=== PATIENT | female | born 1995 | race Caucasian/White ===

== ENCOUNTER → 2016-04-27 | Day surgery (SDC) | payer OTHER ==
[~2016-04-27] VITALS: Ht 170.2 cm; Wt 61.2 kg
--- NOTE | 2016-04-27 17:40 | RADIOLOGY REPORT ---
EXAMINATION: XR LUMBAR SPINE CLINICAL INFORMATION: 21 year old female for lumbar laminectomy at L4-L5 in the OR. COMPARISON: None TECHNIQUE: Single lateral view of the lumbosacral spine was obtained portably in the operating room. FINDINGS: The lowermost lumbar vertebra seen separate from the sacrum is counted as L5. There is a radiopaque marker identified posteriorly overlying the L5 spinous process and a 2nd radiopaque marker seen above the previous marker projecting at the level of L4-L5 disc. IMPRESSION: Portable lateral radiograph of the lumbosacral spine showing findings as described above.
--- NOTE | 2016-04-28 15:15 | Operative Report ---
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 Estimated Blood Loss: less than 50ml Surgeon/Ship'S Cook: LUIS VALDEZ,NOELLE Mane - Primary Admitting Orthopaedic Spine Surgeon Surgical Providers: Noelle Tai M.D. - Orthopaedic Spine Surgeon (Primary Admitting Surgeon) Ja Bailey P.A.-C - Crossing Supervisor Anesthesia: general endotracheal tube Monitors: Standard general anesthesia and other perioperative monitoring was performed per anesthesia. Refer to anesthesia records for details. IV Fluids: Standard anesthesia fluid management was performed without requirement for additional or emergent fluid resuscitation. Refer to anesthesia records for details. Implants: Implants Placed: None Graft Placed: None Urine Output: Refer to anesthesia records for details. Drains: None Specimens: Lumbar disc material was sent to pathology for analysis per hospital protocol. Single large removed disk fragment sent intact for measurement and evaluation. Complications: None Condition: Initial Preoperative Condition: The patients condition was stable to the operating room without vital sign, hemodynamic, cardiopulmonary or other organ system abnormality and without new neurovascular or musculoskeletal functional deficit compared to stable baseline of preoperative distal left lower extremity sensory and motor deficit noted on orthopaedic spine surgical office as well as admission history and physical evaluations. The patient was cleared preoperatively as optimized for surgery by orthopaedic surgical office evaluation prior to admission. There were no significant adverse changes evident in the patients condition between the clearance admission history & physical evaluations and the immediate preoperative assessment. Intraoperative Condition: The patient was stable throughout the procedure without vital sign, cardiopulmonary or other monitoring changes, lability, instability or abnormality. Final Postoperative Condition: The patient was extubated and stable to the recovery room with no new deficit or adverse change compared to stable baseline preoperative neurological and musculoskeletal assessment (with moderate sensory and motor deficits noted above ) based on limited evaluation during initial recovery from anesthesia. The patient demonstrated grossly normal spontaneous motion initially as well as later normal motion and function to command in both upper and distal lower extremities once fully awake upon early recovery from anesthesia. On postoperative neurological assessment the patient reported subjective partial improvement compared to her preoperative sensory and motor deficits and this improvement was confirmed on objective sensory evaluation and manual motor testing with incomplete but greater than 50% return to normal and symmetrical function even at this early timepoint. The patient was very encouraged by this immediate and noticeable response which will be closely monitored throughout her rehabilitation process. There was no swelling, erythema, tenderness, pain with either active or passive motion or any other symptom or finding to suggest a concerning process involving the superficial or deep cutaneous, subcutaneous, muscular, vascular or other tissues related to the immobilization or localized pressure of prolonged prone positioning for surgery. Operative Indication: La Degroot is a 21 year old healthy white female who presents today for left L4-L5 hemilaminotomy and decompressive discectomy to address severe left lower extremity radiating pain, distal numbness and distal EHL/AT weakness with partial footdrop and some claudicating ambulatory worsening of symptoms, mild gait abnormality and additional functional deficits secondary to large left L4- L5 disk herniation causing significant traversing and exiting neural element compression. This condition became symptomatic several months ago related to a rapid but non-vigorous and atraumatic change of body position without specific or significant inciting event, injury or change in activity. She denies any prior history of severe and incapacitating back pain and has never had any prior radiating symptoms. She does report prior history of activity related back pain consistent with additional findings of lower lumbar degenerative change on radiologic studies possibly related to cumulative sports and recreational injuries but with no history of severe or even significant trauma. Her symptoms and condition steadily progressed initially and have now plateaued at an unacceptable level associated with significant activity and functional limitation consistent with the radiologic findings of severe left canal and lateral recess soft tissue stenosis causing significant neural compression. She has not improved despite excellent compliance with an extensive and comprehensive course of conservative, noninvasive management and thus she has very reasonably chosen to proceed with surgical discectomy for decompression. The patient's preoperative lumbar spine radiologic workup (including static radiographs and MRI scan) showed the above noted severe left canal and lateral recess soft tissue stenosis secondary to a very large left L4-L5 extruded disk herniation fragment consistent with the patient's current presenting clinical condition including symptoms (radiating pain and sensory loss), physical examination findings (distal left lower extremity motor weakness) and functional deficits. The radiologic findings are also consistent with the persistence of her condition and her failure to improve with conservative care. Standard preoperative laboratory studies for this young female patient were unremarkable including negative HCG testing. The patient has sufficiently severe and progressively worsening clinical condition (symptoms and exam findings listed above) related to this condition, has failed a comprehensive conservative management program despite excellent compliance, has close correlation between clinical presentation and preoperative studies, is medically optimized for surgical intervention, understands and accepts the limitations, uncertainties and risk of surgery, appears to have appropriate goals for surgical outcome, and is more likely to achieve those goals with the planned surgical procedure than with other options for treatment thus making her a reasonable candidate for surgical intervention. The patient reports no significant past medical or surgical history pertinent to her current surgical treatment. She denies any complications, adverse events or outcomes associated with procedures, tests or interventions. She reports no current or recent medication or supplement use. She denies any history of anaphylactic, anaphylactoid, allergic or non-allergic reactions or sensitivities to medications, foods or skin contact environmental allergens. She is a non- tobacco-smoker and denies significant alcohol intake or other social risk factors. She reports other daily smoking history which is described in greater detail in her office records and is not likely to be significant to her perioperative or other orthopaedic care. The above clinical information was reviewed throughout the hospital admission and preoperative confirmation process but did not alter surgical recommendations, treatment plans or perioperative management in this case. Treatment options were discussed in detail directly with the patient. After careful and appropriate consideration she elected to proceed with the planned operative procedure of left L4-L5 hemilaminotomy and decompressive discectomy. She also consented to any additional indicated procedure based on intraoperative findings. Arrangements for hospital admission, surgery and perioperative care were made through Dr. Tai's office. In addition to the general risks of all surgical procedures (bleeding, infection, anesthesia and other general risks), specific risks of the planned procedure were reviewed with the patient including but not limited to tissue injury or exacerbation of prior injury (spinal cord, nerve root, peripheral nerve, meningeal, blood vessel, bone, disk, joint, muscle, tendon, ligament or other tissue injury), meningeal tear, spinal fluid leak, fracture of spinal elements, worsening of spinal alignment, abnormal (hypertrophic, heterotopic or ectopic) bone or scar formation, new or persistent-exacerbated symptoms (pain, dysesthesias, paresthesias, headaches), development of new or worsening of preexisting medical conditions or complications (arthritis, blood clots, cardiac events, stroke, acute organ failure of any organ, other medical conditions potentially worsened by trauma, surgery, anesthesia or immobility), inability to complete the procedure as planned, and need for reoperation at the current or a future related site (including possible surgeries for degenerative processes documented at the current and adjacent lumbar levels). Potential for partial or complete, global or regional loss of motor, sensory, coordination, ambulatory, balance, bladder, bowel or sexual function was reviewed. Remaining potential complications were reviewed in inclusive risk categories ranging through all severity levels from temporary changes to catastrophic outcomes such as complete paralysis, organ failure, disfigurement or . The patient understood and accepted that her risk was slightly above average for this procedure compared to her age and clinical cohort due to her duration, severity and steady progression of pre-operative symptoms, significant and progressive pre-operative subjective and objective left lower extremity deficits , severity of neural element compression on MRI, degree and multiple levels of degenerative disk disease at her young age. She also understood that her risk of personally significant functional limitation following surgery was higher than most patients because of her young age, vigorous desired baseline activity level and degenerative disease. On the other hand, her small frame and history of excellent exercise compliance likely mitigates some of this increased risk. She also understood and accepted that the purpose of surgery is to minimize the chance for further progression of symptoms and neurological deficit and that her current preoperative deficits may be permanent. Signed operative consent was obtained directly from the patient with good understanding of all reasonable alternatives, indications, goals, expectations, limitations, risks and benefits of the planned procedure. She consented to all phases of the procedure being performed by Dr. Tai with the assistance of all designated hospital and outpatient practice team members. She was cleared preoperatively as optimized for surgery by primary surgeon office evaluation prior to admission. In the preoperative evaluation area, the patient confirmed her oral intake status as NPO since midnight prior to surgery. Operative/Procedure Note Note: Preoperative Holding Area Assessment/Preparation: The patient was evaluated in the preoperative holding area prior to surgery and no clinical changes or contraindications to surgical intervention were documented compared to the preoperative office and clearance evaluations. Her left foot and ankle sensory and motor deficits were unchanged from clearance examinations. As in the office, the patient was otherwise grossly neurovascularly intact in both lower extremities to standard testing. There were no multiple, bilateral or sacral root distribution sensory, motor, reflex, coordination or ambulatory changes to suggest acute increase in neural element compression that might be associated with increased neurological intraoperative risk based on preoperative assessment. The surgical plan and site were confirmed with the patient and preoperative paperwork was finalized. The region of the intended surgical site was cleansed, prepped and marked per protocol. The primary surgeon, anesthesia care team members, and operating room staff confirmed the patient identity, surgical procedure, and operative site as well as other clinical details with the patient in an initial documented preoperative confirmation (awake time out) prior to the administration of sedation or anesthesia. Surgical Procedure: The procedure was performed by Dr. Tai who was present and served as the primary surgeon for all critical intraoperative and perioperative decisions and interventions. The assistance of a specialty trained surgical physician assistant director was critical for safe completion of all phases of the procedure, particularly for maintenance of clear visualization in the operative field and for protected neural element retraction. Set-Up/Positioning/Exposure - The patient was brought to the operating room in stable condition and underwent uncomplicated induction of general anesthesia, intubation, and placement of all appropriate monitors, lines and catheters without difficulty. Administration of 2 grams of IV Ancef based on patient body mass was given for surgical prophylaxis and was completed at least 30 and less than 60 minutes prior to making an incision. The patient was positioned prone on the standard operating table outfitted with a rigidly attached Cloward frame in typical fashion for a lower lumbar discectomy taking care to protect and stabilize the spine during transfer, avoid positions of nerve stretch, pad all pressure points, and support the head without any pressure on the eyes using a foam head rest. The arms were abducted less than 90 degrees at the shoulders, flexed less than 90 degrees at the elbows and supported on well padded arm-boards with additional foam padding from the axillary to the hands with all pressure points either fully padded or supported without any contact at all between pads. The primary surgeon, anesthesia care team, and operating room staff again documented the patient identity, surgical procedure, and operative site as well as other clinical details in a final documented confirmation (final time out) prior to beginning the procedure. Loupe magnification was used throughout the appropriate portions of the procedure. After sterile prep and drape, an incision was mapped, infiltrated with 0.5% Marcaine local anesthetic with epinephrine, and made extending longitudinally from the superior tip of the L4 spinous process to the superior tip of the L5 spinous process overlying the intended L4-L5 operative level. Hemostasis was achieved using Bovie and Bipolar electrocautery beginning with the incision and continuing throughout the procedure with settings appropriate to each progressive level. The lumbosacral fascia was divided over the left side of the L4 and superior L5 spinous process tips as well as the bridging interspinous ligament segment using the Bovie electrocautery which was also used to maintain hemostasis throughout the exposure. Care was taken to preserve the interspinous ligament so as to maintain optimal postoperative stability and motion segment ligamentous tension. The dissection was then carried down the left side of the middle and inferior L4 spinous process, the interspinous space and the superior margin of the L5 spinous process and then extended laterally to expose the corresponding laminae and interlaminar space at that level out to the edge of the left L4-L5 facet capsule which was preserved. The Roland retractor was placed with lateral blunt serrated ("toothed") blade and medial interspinous hook of appropriate length to provide optimal retraction and visualization. The intended hemilaminotomy and discectomy level was marked with a curved curette placed under the inferior leading edge of the superior lamina and confirmed to be at the intended interspace on cross-table lateral radiograph. Intraoperative findings of multilevel lower lumbar moderate degenerative disk disease correlated well with the preoperative radiographic studies and no obvious interval change or additional abnormality was noted. The alignment of the spine on this intraoperative localization radiograph was noted to be normal and unchanged from preoperative office studies. Hemilaminotomy/Discectomy/Decompression - The lateral margin of the pars interarticularis of L4 was identified so as to insure that the hemilaminotomy was tapered sufficiently to avoid thinning or destabilization of this region. Left L4 inferior hemilaminotomy was performed by thinning the inferior edge of the L4 lamina in a tapered fashion using the [place] Johnathan drill followed by piecemeal resection of the deep laminar cortex using Kerrison rongeurs after dissecting under the leading edge with a curved curette to free any underlying adhesions. The inferior hemilaminotomy of L4 was sufficient to adequately and safely access and decompress the canal in this case and so no additional interlaminar hemilaminotomy (with resection of the superior margin of L5) was required. The L4 hemilaminotomy was carried out laterally to the level of the medial margin of the facet superficially and to the level of the medial wall of the L5 pedicle within the canal taking care not to violate the posterior facet capsule or excessively thin the pars interarticularis. This dissection provided sufficient canal access in this patient such that no partial medial facetectomy was required for additional exposure. The cephalad edge of the ligamentum flavum was dissected from its laminar attachment and elevated with a curved curette to insure that there were no epidural adhesions dorsally. The ligamentum was reflected medially but was sufficiently thickened that it could not be easily spared while still providing sufficient access to the canal and room for nerve mobilization to allow safe removal of the very large disk fragment. Therefore, the elevated ligamentum was fully resected within the laminotomy opening using Kerrison rongeurs. This provided excellent exposure of the canal with full visualization and safe access to the elevated and compressed lateral thecal sac and traversing nerve root at this level. Attention was then turned to the perineural dissection and safe mobilization of the neural elements for exposure of the compressive disk herniation. On initial visual evaluation, the traversing nerve root and lateral thecal sac were seen to be obviously dorsally displaced and somewhat flattened ventrally by passage over the large underlying herniated disc fragment which appeared to have both significantly extruded into the canal (associated with direct traversing neural structure meningeal contact) and also partially migrated in a pocket beneath the posterior longitudinal ligament behind the L4 vertebral body (associated with indirect exiting neural element compression) consistent with the preoperative clinical presentation and MRI findings. The direct contact of the disk material with the meninges was associated with focal areas of ventral nerve root erythema , inflammation and irritation suggestive of chemical as well as compressive radiculopathy and consistent with the severity, chronicity and poor response to conservative measures of the patient's symptoms confirming the indications for surgery. All of these findings also suggested that improvement would have been unlikely with further conservative management and without surgical intervention. The large size of the extruded disk herniation fragment with extension outside of the normal confines of the disk space and even some migration beyond the motion segment behind the vertebral body along with its chronicity and inflammatory response was associated with moderate epidural fibrosis and therefore necessitated more extensive dissection (and consequently more careful and extensive protection of the neural elements) as well as more operative time than usual for a typical discectomy procedure. Although neurolysis was felt to be significantly increased compared to the average, the fibrotic adhesions did not appear to cause separate tethering or compression of the neural elements, and therefore this additional dissection was still deemed to be consistent with a standard discectomy procedure. No separately coded neurolysis procedural service was required in this case. Gentle palpation and careful dissection with a [place] 4 and limited epidural neurolysis was sufficient to safely mobilize the neural elements sufficient to optimally access the more ventral large extruded disk fragment in the lateral recess and safely perform decompressive discectomy. A [place] 4 was used to dissect down the superomedial wall of the L5 pedicle to the floor of the canal thus defining a safe plane for dissection and neurolysis where necessary. This dissection was then carried superiorly where the disk space was identified and gently dissected free of adhesions over the top of the extruded disk herniation covered with an adherent but not tethering fibrotic layer. An inferior safe plane was identified lateral to the traversing nerve root just above the L5 pedicle, caudal to the extent of extruded disc fragment and epidural fibrosis. Dissection was then carefully carried superiorly within that safe dissection plane to fully free the traversing root from the disk herniation and fibrous tissue so as to adequately mobilize it for retraction. Once this had been safely achieved the dissection was carried medially over the large extruded fragment until the traversing root could be retracted sufficiently to expose the entire surface of the herniation in preparation for discectomy. After initial dissection and neural element mobilization the dorsal extent of the disc herniation fragment was visualized and gently manipulated from its extruded and partially sequestered position using a pituitary rongeur. Ultimately the entire large extruded fragment was removed in a single piece including a small tail of fragment still contained within the disk space and behind the annulus through a moderate-sized annular tear. This fragment resection resulted in visible decompression of the previously elevated traversing root and thecal sac. This debulking allowed further careful perineural dissection all the way to the ventral midline with significantly less tension on the traversing neural elements thus minimizing risk of injury. The axilla of the traversing root was checked and no fibrotic tethering was found that might cause acute angle "kinking" or other focal compression at the exit of the nerve from the thecal sac. Thus there was no significant dissection required in the axillary zone. With the perineural dissection, neurolysis and resection of extruded fragment complete, the neural elements could be safely retracted so as to allow extension of the traumatic annulotomy followed by final discectomy of any remaining disk herniation fragments and all loose intradiscal fragments using standard technique. Epidural hemostasis was achieved using Bipolar electrocautery and gentle packing of the epidural space with small volume of Thrombin soaked Gelfoam held with Patties which also provided some medial retraction of the neural elements for optimal exposure of the disk space. The traversing nerve root and thecal sac were gently retracted with a Love nerve root retractor to expose the disk space while protecting the neural elements. The subligamentous pocket formed behind the L4 vertebral body by the dissecting portion of the large disk fragment was explored using an Antonella curette to insure that there were no additional sequestered fragments and none were found. A minimal linear extension of the traumatic annulotomy was performed using a # 11 scalpel blade to optimize disk space access. Interspace discectomy was then performed to remove a few loose intervertebral disc fragments using straight and angled pituitary rongeurs taking care to carry the discectomy laterally within the disk space ventral to the foramen so as to completely decompress both the intra- and extra-foraminal spaces, in addition to the lateral recess and central canal. The disk material was found to be structurally normal in this subforaminal zone. All loose or non-physiologic disk material was removed from all disk space zones while preserving as much palpable structurally intact disk as possible. Only a few small fragments were removed from the central and lateral regions and no large or compressive loose fragments were found either centrally or laterally. By palpation the large resected herniation fragment left a moderate-sized central defect in the disk space, however the remainder of the disk was of fairly normal consistency by palpation and there were no nucleus , annulus or cartilaginous endplate defects palpated adjacent to the central defect or in the peripheral zones. Once the discectomy was completed, an Antonella curette and nerve hook were used to gently sweep under the retracted traversing nerve root and thecal sac to ensure that there was clear passage within the ventral epidural space with no residual extravasated or sequestered disk fragments found. A [employer] dental instrument was then gently passed out the upper and lower foramina without evidence of any foraminal narrowing, stenosis or nerve root compression of either the exiting or the traversing roots. Therefore, no osseous foraminotomy, foraminal soft tissue decompression or lateral root neurolysis dissection was required. Moderate irritability, hyperactive neural firing and muscular contraction was noted during neurolysis, neural element mobilization and decompressive discectomy of the large extruded disk fragment. This was consistent with the degree of compression and irritation seen both on preoperative MRI and intraoperative inspection. All hyperactive responses resolved immediately following decompression and no further abnormal activity was noted during the remainder of the procedure. Hemostasis of osseous and epidural bleeding was achieved using Thrombin soaked Gelfoam and paddies gently applied and removed by irrigation with all bleeding controlled. Bleeding from the laminectomy edge was controlled with small amount of bone wax applied using the back of a [place] with any residua removed. Closure/Recovery - The surgical site was thoroughly irrigated and hemostasis was carefully achieved prior to closure. A piece of Gelfoam was cut to match the size of the laminotomy defect and placed over the dorsal surface of the lateral thecal sac and traversing nerve root to minimize epidural fibrotic adhesions to the decompressed neural elements. The surgical site was found to be dry at the end of the procedure and consequently no drain was needed. Initial counts were correct prior to closure. The lumbar fascial layer was reapproximated to the spinous process and trans-spinous portions of the preserved midline interspinous ligament in a [id number] closure using #0 Vicryl interrupted, [id number] suture technique. The deep suprafascial closure was performed with #2-0 Vicryl interrupted, simple suture technique. The superficial subcutaneous layer was closed with #3-0 undyed Vicryl inverted, interrupted, simple sutures. The skin was closed using #4-0 undyed running subcuticular Monocryl suture followed by Steri-Strips applied with Mastisol. A standard, sterile small island dressing was placed with good coverage. All counts were correct prior to removing the drapes. The patient was turned into the supine position on the hospital bed using careful log-roll technique, avoiding torsional stress and stabilizing the lumbar region during transfer. She was then extubated in the operating room without difficulty. Recovery Room Assessment: The patient was transported to the recovery room in stable condition where gross neurological examination showed normal function with no deficits or worsening compared to her pre-operative assessments on initial recovery from anesthesia. In fact, the patient reported subjective improvement in both her left distal lower extremity sensory and motor function and this was confirmed by objective testing to be noticeably partially improved (by approximately 50%) compared to preoperative assessment. The patient will follow the usual postoperative protocol for lower lumbar decompressive discectomy with some adjustments and accommodations made to the standard protocol because of the degree of preoperative neurological deficit, size of the patient's herniation fragment, multilevel degenerative changes at a young age and desire to return to a high level of function including vigorous recreational activities. Her postoperative care plan will include early mobilization, oral medication pain control and same day home discharge planning with instructions to mobilize frequently but to avoid lumbar motion or prolonged unsupported upright sitting. Primarily because of her concomitant moderate degenerative disk disease she will use a compression brace during the initial phase of healing for both stability and some distraction so as to optimize fibrous intervertebral disk space stabilization and healing. Lower extremity (particularly gentle hip and knee) motion is encouraged to promote longitudinal nerve motion and minimize fibrous neural tethering during the fibrous consolidation and motion segment stabilization healing phase. Outpatient rehabilitation program will be arranged either through the office or at school to begin slowly but progressively at approximately 4 weeks after surgery assuming standard and uncomplicated postoperative course and following clearance at initial postoperative follow-up assessment. Findings: 1) Large, extruded and partially migrated, very compressive disk herniation fragment was identified significantly elevating, compressing and irritating the overlying traversing and exiting neural elements. The extruded portion was associated with direct contact with the traversing neural elements including the lateral thecal sac and L5 nerve root. 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 The migrated and partially sequestered portion of disk herniation within a subligamentous pocket behind the L4 vertebral body was noted to cause indirect encroachment through the posterior longitudinal ligament within the lateral recess causing L4 nerve root exit zone bidirectional compression against the dorsal canal wall. All of these findings are consistent with the preoperative clinical presentation and radiologic findings. 2) Moderate neurolysis, increased compared to average but still consistent with standard range of discectomy procedures, was required to safely retract and protect the neural elements for discectomy and decompression. The main compressive disk herniation fragment was removed with return of all neural elements to their normal undeviated position. The disk space was then explored to remove the few remaining small loose and nonviable fragments. 3) No partial facetectomy or foraminotomy was required for additional decompression in this case. Full central canal, lateral recess and foraminal decompression was documented by intraoperative visual assessment and palpation at the end of the procedure. 4) Partial return of left distal lower extremity sensory and motor function was subjectively noted by the patient and objectively confirmed by physical examination in the recovery room on early postoperative evaluation. Discharge Disposition: PACU Additional Comments: Standard postoperative protocol for lumbar hemilaminotomy, neurolysis and discectomy will include: Continue perioperative antibiotic coverage for a total of 16 hours (1 preoperative dose as described above and 1 postoperative, pre-discharge dose of Ancef 2 grams IV 8 hours after the initial dose) The patient will use her lumbosacral circumferential compression brace (which will be dispensed from the office) most of the time when she is out of bed but may remove it to take breaks and for hygiene. Even when the brace is in place, but particularly when the brace is off, the patient is cautioned to minimize lumbar motion and prolonged unsupported upright sitting. This level of brace use and motion limitation will continue until her first postoperative visit at which time future need for bracing will be assessed and she should be able to wean its use first for normal functions and then for more vigorous activities as she strengthens with a standardized outpatient physical rehabilitation therapy program. It is not necessary for her to use the brace constantly nor when she is sleeping although she may use it at night for comfort if she so chooses. The patient will be instructed on and follow standard protocols regarding lumbar surgical site care, showering and daily dressing changes following shower starting on postoperative day #2. The patient will be mobilized in the postoperative observation area with nursing supervision prior to discharge and within several hours of arrival to the recovery room. Home discharge planning will also be initiated at that time. Inpatient physical therapy will not likely be necessary prior to discharge. Formal therapy consultation evaluation will be requested on the afternoon of surgery prior to discharge if the patient has difficulty with early mobilization , requires ambulatory aide, or requires specialized assessment to facilitate home discharge planning for safe basic independent home functions. The primary plan will be for home discharge during the afternoon following surgery shortly following her postoperative IV dose of antibiotics as described above. The patient is encouraged to minimize lumbar motion, lifting, carrying, pushing, pulling and prolonged unsupported upright sitting (longer than for meals) particularly during the first 6 weeks postoperatively. Advance normal diet as tolerated and without any required restrictions. Balanced diet is recommended to support optimal surgical site and osseous healing. If any significant adverse GI symptoms develop then reduce diet and contact surgeon. The patient is at low perioperative thromboembolic risk and does not require any pharmacologic prophylactic treatment in this regard as long as she mobilizes early and frequently with lower extremity motion exercises and ambulation. Sequential compression devices will be used throughout the patient's hospitalization. Contact Dr. Tai in the unlikely event that the patient is unable to mobilize adequately by several hours after surgery. Assuming standard hospital course: Discharge planning for home discharge can begin within a few hours of surgery once the patient has fully recovered from anesthesia. The patient will be discharged with the following prescriptions: Narcotic Pain Medication: Oxycodone/Acetaminophen 5/325 mg 1-2 PO q4-6 hours prn pain (#40, No Refill) Benzodiazepine Muscle Relaxant Medication: Diazepam 5 mg 1-2 PO q8 hours prn spasm (#30, No Refill) The patient was instructed not to drive for at least the first 2 weeks postoperatively and given recommendations regarding short distance driving thereafter only if she no longer requires a brace, has good pain control without the need for narcotic or other sedating medication, and has met all DM criteria for safely operating her specific motor vehicle. Initial postoperative follow-up evaluation was scheduled for the patient prior to surgery and should be approximately 10-14 days postoperatively at which time her surgical site will be checked and her early response to surgery will be assessed. Outpatient physical therapy as well as other plans and arrangements will be made at that time along with a schedule for graded return to more normal activities. The patient may return to non-vigorous activities and college classes as tolerated based on symptoms and requirement for sedating medications. She is cautioned regarding unsupported upright sitting particularly for classes , work or computer use and is encouraged to support her lumbar region in a slightly reclined and cushioned position whenever prolonged sitting is required. She will not likely be ready for prolonged unsupported sitting or more vigorous activities until she has completed at least the initial phase of outpatient postoperative rehabilitation program approximately 2-3 months from now, although the specific timing will depend on her standard lumbar discectomy postoperative assessments. She may be able to return to vigorous activities and sports in a graded and progressive fashion starting at 3 months after surgery but this will again depend on postoperative assessments and progress with initial therapy. Additional advanced therapy programs may be required for full activity return depending on specific patient goals particularly given the known degenerative changes already documented on radiologic studies in this patient. Anterior- posterior and lateral lumbar spine radiographs will be performed (without the brace in place) at the 6 week follow-up evaluation unless indicated earlier. Additional postoperative follow-up radiographs will not likely be required unless persistent symptoms limit achievement of all return to activity and function goals. Her degenerative disk condition warrants more chronic radiologic follow-up if she is symptomatic but otherwise radiographs can be performed on an as needed basis. The patient already has Dr. Davis office contact information and will again be given the office phone number along with home care instructions prior to discharge. She is encouraged to call for any questions or concerns and particularly for any significant or prolonged fever or incisional drainage, erythema or swelling as well as for any pronounced lower extremity neurological changes. CC: LUIS VALDEZ,NOELLE Mane; VIOLA SHIRLEY,JA Hinson
== END ==
LOC: STS 02:01
DX: M51.26 Other intervertebral disc displacement, lumbar region (principal); M51.16 Intervertebral disc disorders with radiculopathy, lumbar region
CPT/HCPCS: 36415; 72020; 81025; 88304; J0131; J0690; J2250